=== PATIENT | male | born 1950 | race Caucasian/White ===

== ENCOUNTER 2020-05-15 00:42 | Observation (INO) | payer OTHER ==
[2020-05-15 01:06] LABS: #Eosinphils 0.2 thou/uL (0.0-0.7); #Lymphocytes 1.4 thou/uL (1.20-3.40); #Monocytes 0.6 thou/uL (0.11-0.59); #Neutrophils 4.5 thou/uL (1.40-6.50); %Basophils 0.5 % (0.0-1.0); %Eosinophils 3.1 % (0.0-10.0); %Lymphocytes 20.5 % (21.0-51.0); %Monocytes 8.9 % (0.0-10.0); Hemoglobin 9.4 g/dL (14.0-18.0); Mean Corpuscular HGB CONC 32.6 g/dL (32.0-36.0); Mean Corpuscular Hemoglobin 27.1 pg (27.0-31.0); Mean Corpuscular Volume 83.3 fL (78.0-98.0); Mean Platelet Volume 8.1 fL (7.4-10.4); Platelet Count 246 thou/uL (130-400); Red Blood Cell (RBC) Count 3.47 mill/uL (4.70-6.10); White Blood Cell (WBC) Count 6.7 thou/uL (4.8-10.8)
[2020-05-15 01:29] LABS: ALT (SGPT) 19 U/L (8-55); AST (SGOT) 20 U/L (5-34); Albumin 4.1 g/dL (3.4-4.8); Alkaline Phosphatase 76 U/L (40-110); Anion Gap 13 mmol/L (10-20); BUN (Urea Nitrogen) 19 mg/dL (8.4-25.7); Bilirubin, Total 0.4 mg/dL (0.2-1.2); Calc. Creatinine Clearance 0 mL/min (70-130); Calcium 8.8 mg/dL (7.8-10.44); Carbon Dioxide 21 mmol/L (23-31); Chloride 108 mmol/L (98-107); Estimated GFR-MDRD 78; Globulin 2.5 g/dL (2.4-3.5); Glucose 82 mg/dL (80-115); Lipase 9 U/L (8-78); Potassium 3.6 mmol/L (3.5-5.1); Protein, Total 6.6 g/dL (5.8-8.1); Sodium 138 mmol/L (136-145)
[2020-05-15] MEDS ORDERED: Fentanyl 100 MCG/2 ML VIAL ONE (03:22)
--- NOTE | 2020-05-15 04:12 | PDOC.EVN ---
Event Note - Event Note Event Note: [id number] HP
[2020-05-15] MEDS ORDERED: Dextrose 5% in Water 1,000 ML IV PRN (04:18)
[2020-05-15] MEDS ORDERED: Dextrose 50% Abboject 50 ML SYRINGE SLOW IVP PRN (04:18)
[2020-05-15] MEDS ORDERED: HumaLOG 300 UNITS/3 ML VIAL SC PRN (04:18)
[2020-05-15 05:15] LABS: Troponin I 0.029 ng/mL (< 0.028)
--- NOTE | 2020-05-15 05:18 | HP ---
CHIEF COMPLAINT: Chest pain. HISTORY OF PRESENT ILLNESS: Mr. Saunders is a 70-year-old male with significant cardiac history including congestive heart failure, coronary artery disease, cardiac pacemaker, atrial fibrillation, among others, presented to the emergency room with substernal chest pain and left upper back pain. The patient reports earlier this evening he started having back pain, which caused him to fall and then he reported his back starts spasming. The patient reported later evening that he started having substernal chest pain and shortness of breath. The patient has a history of chronic back pain, which he uses lidocaine patch for it. The patient has a history of coronary artery disease with a previous HI, cardiac stents, pacemaker. The patient stated that his chest pain has improved at this time. He denies syncope, dizziness, nausea, vomiting, abdominal pain, fever, or chills. Workup in the emergency room including initial troponin is negative. EKG showed atrial fibrillation. CT of the chest was done, which ruled out dissection. The patient also was found to be anemic with hemoglobin of 9.4, unknown baseline. The patient was supposed to be transferred to the [facility], but the request was denied. The patient is being admitted to our medical facility for further management. PAST MEDICAL HISTORY: Congestive heart failure, hyperlipidemia, diabetes mellitus, type 2, coronary artery disease, insufficiency, colon cancer, atrial fibrillation, myoclonic body jerks, chronic back pain, among others. PAST SURGICAL HISTORY: 1. Colon removal. 2. Thyroidectomy. 3. Cardiac stent. 4. Defibrillator/pacemaker. FAMILY HISTORY: Reviewed and noncontributory. SOCIAL HISTORY: No reported history of smoking, alcohol abuse, or drug abuse. The patient is a very poor historian. REVIEW OF SYSTEMS: Review of 14 systems negative except as mentioned in the history of present illness. PHYSICAL EXAMINATION: GENERAL: The patient is awake, alert, in mild distress. VITAL SIGNS: Blood pressure is 130/74, pulse is 82, respiratory rate is 18, oxygen saturation 98%, temperature is 98.2. HEAD AND NECK: Normocephalic, atraumatic. Neck is supple. CHEST: Fair bilateral air entry. HEART: Irregularly irregular. ABDOMEN: Soft, nontender. Bowel sounds present. NEUROLOGIC: Awake, alert, moving extremities. PSYCHIATRIC: Unable to assess. EXTREMITIES: No clubbing or cyanosis. LABORATORY DATA: As mentioned above in history of present illness. IMAGING STUDIES: As mentioned above in history of present illness. ASSESSMENT: 1. Acute chest pain, rule out acute coronary syndrome. 2. Coronary artery disease with history of cardiac stents. 3. Congestive heart failure, type undetermined. 4. Atrial fibrillation. 5. Automatic implantable cardioverter defibrillator. 6. Back pain, [id number]. 7. Diabetes mellitus, type 2. 8. Anticoagulated on Eliquis. PLAN: 1. Admit. 2. Telemonitor. 3. Serial troponins. 4. Aspirin. 5. Consult Cardiology in a.m. for evaluation and further recommendations. 6. Reconcile home medications. 7. DVT prophylaxis as appropriate. 8. Expected length of stay is 2 midnights, if patient is stable and further workup negative. Job ID: [id number]
[2020-05-15] MEDS: Acetaminophen 325 MG TAB PO PRN ×3 (05:49→20:12)
[2020-05-15] MEDS: Nitroglycerin 2% Ointment 1 INCH/1 GM Packet TOP SCH ×3 (05:49→22:05)
[2020-05-15] MEDS ORDERED: hydrOXYzine 25 MG TAB PO PRN (07:00)
[2020-05-15 07:37] LABS: Troponin I 0.028 ng/mL (< 0.028)
[2020-05-15] MEDS ORDERED: NALOXONE HCL SL SCH (09:00)
[2020-05-15] MEDS ORDERED: BUPRENORPHINE HCL SL SCH (09:00)
[2020-05-15] MEDS ORDERED: Metoprolol Tartrate 100 MG TAB PO SCH (09:00)
[2020-05-15] MEDS ORDERED: Aspirin 325 mg Enteric Coated Tablet PO SCH (09:00)
--- NOTE | 2020-05-15 09:22 | RAD ---
CHEST 1 VIEW: HISTORY: Chest pain. COMPARISON: None. FINDINGS: Heart size is mildly enlarged. The AICD/pacer lead tips project over the right atrium and right vent ricle. IMPRESSION: Mild cardiomegaly. No acute intrathoracic abnormality. POS: HOME
[2020-05-15] MEDS: Digoxin 0.125 MG TAB PO SCH ×2 (10:21→15:28)
[2020-05-15] MEDS: Tamsulosin HCl 0.4 MG CAP PO SCH (10:21)
[2020-05-15] MEDS: Mycophenolate 250 MG CAP PO SCH ×2 (10:22→20:12)
[2020-05-15] MEDS: DULoxetine 60 MG CAP PO SCH (10:22)
[2020-05-15] MEDS: levETIRAcetam 500 MG TAB PO SCH ×2 (10:23→20:13)
--- NOTE | 2020-05-15 10:23 | CT ---
PRELIMINARY REPORT/[facility]/EMERGENCY AFTER HOURS PROCEDURE: EXAM: CTA Chest with Intravenous Contrast CTA Abdomen with Intravenous Contrast. CLINICAL HISTORY: 70-year-old male patient presents to the ER with complaint of substernal chest pain , left upper back pain. The patient reports earlier this evening he started having back pain which th en caused him to fall, then reports his back started spasming. And patient reported later on this rell aftab he started having substernal chest pain and shortness of breath. The patient does report a histo ry of chronic back pain which he uses lidocaine patches for. The patient also has a history of lemos ry artery disease with a previous ND, 1 stent, pacemaker CONTRAST: With; ISOVUE 370, 90ML COMPARISON: None provided. FINDINGS: VASCULATURE: Aorta: No acute finding. No abdominal aortic aneurysm. No dissection. Pulmonary arteries: The pulmonary arteries are adequately opacified. No pulmonary embolism. Great vessels of aortic arch: No acute finding. No dissection. No arterial occlusion or significant s tenosis. Celiac trunk: No acute finding. No occlusion or significant stenosis. Superior mesenteric artery: No acute finding. No occlusion or significant stenosis. Inferior mesenteric artery: No acute finding. No occlusion or significant stenosis. Renal arteries: No acute finding. No occlusion or significant stenosis. Status post left nephrectomy. CHEST: Lungs: Dependent atelectasis. No mass. No consolidation. Pleural spaces: No pleural effusion. No pneumothorax. Heart and mediastinum: Moderate cardiomegaly. No significant pericardial effusion. Coronary artery ca lcifications are seen. Calcified mediastinal lymph nodes. ABDOMEN: Liver: Unremarkable. No mass. Gallbladder and bile ducts: No calcified stone. No ductal dilation. Pancreas: Unremarkable. No ductal dilation. Spleen: Unremarkable. Adrenals: No mass. Kidneys and ureters: Status post left nephrectomy. No hydronephrosis. No solid mass. 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 Stomach and bowel: No obstruction. No bowel wall thickening. No CT evidence of acute diverticulitis. Lymph nodes: No lymphadenopathy. Bones and soft tissues: No acute osseous abnormality. The soft tissues are unremarkable. IMPRESSION: No acute finding. No occlusion or hemodynamically significant stenosis of the arterial sy stem of the chest, abdomen or pelvis. No aortic dissection. No aortic aneurysm. ELECTRONICALLY SIGNED BY: Delta Gu MD May 15, 2020 2:24:24 AM CDT FINAL REPORT CTA CHEST WITH IV CONTRAST AND 3D POSTPROCESSING CTA ABDOMEN WITH IV CONTRAST AND 3D POSTPROCESSING: I agree with the preliminary report given by Dr. Delta Gandhi of [facility]. POS: OFF
[2020-05-15] MEDS: Famotidine 20 MG TAB PO SCH ×2 (10:24→20:12)
[2020-05-15] MEDS: Spironolactone 25 MG TAB PO SCH (10:24)
[2020-05-15] MEDS: Minocycline HCl 50 MG CAP PO SCH (10:25)
[2020-05-15] MEDS: Hydrocortisone 10 mg Tablet PO SCH ×2 (10:25→18:46)
[2020-05-15] MEDS: Furosemide 20 MG TAB PO SCH (10:26)
[2020-05-15] MEDS: Apixaban 5 MG TAB PO SCH ×2 (10:26→20:16)
[2020-05-15] MEDS: Calcium Carbonate 600 MG + Vit D TAB PO SCH ×2 (10:26→20:16)
[2020-05-15] MEDS: Finasteride 5 MG TAB PO SCH (10:26)
[2020-05-15] MEDS: Amiodarone 200 MG TAB PO SCH ×2 (10:27→15:28)
--- NOTE | 2020-05-15 10:27 | CT ---
PRELIMINARY REPORT/[facility]/EMERGENCY AFTER HOURS PROCEDURE: EXAM: CT cervical spine without contrast CLINICAL HISTORY: FALL; 70-year-old male patient presents to the ER with complaint of substernal ches t pain, left upper back pain. The patient reports earlier this evening he started having back pain wh ich then caused him to fall, then reports his back started spasming. COMPARISONS: CT - CT BRAIN WO CON - 05/15/2020 01:39 AM CDT TECHNIQUE: CT imaging of the cervical spine without contrast, with multiplanar reconstructions. FINDINGS: BONES: Minimal anterolisthesis at C2-C3, likely degenerative. Alignment is otherwise normal. Vertebra l body heights are preserved. No acute fracture. Multilevel facet hypertrophy with partial osseous fusion of the left C4-C5 articular facet joints. SOFT TISSUES: Prevertebral and paraspinal soft tissues are unremarkable. Calcification of the distal common carotid arteries, carotid bulbs, proximal cervical internal carotid arteries. Imaged soft tiss ues have an otherwise normal noncontrast appearance. UPPER CHEST: Imaged lung apices are clear. No apical pneumothorax. See CTA chest from same day for fu ll thoracic evaluation. HEAD: See CT head from same day for full intracranial evaluation. IMPRESSION: No acute osseous abnormality of the cervical spine. ELECTRONICALLY SIGNED BY: Dilip Roque MD May 15, 2020 2:04:35 AM CDT FINAL REPORT CT CERVICAL SPINE WITHOUT CONTRAST: I agree with the preliminary report given by Dr. Dilip Roque of [facility]. POS: OFF
--- NOTE | 2020-05-15 10:29 | CT ---
PRELIMINARY REPORT/[facility]/EMERGENCY AFTER HOURS PROCEDURE EXAM: CT head without contrast CLINICAL HISTORY: FALL; 70-year-old male patient presents to the ER with complaint of substernal ches t pain, left upper back pain. The patient reports earlier this evening he started having back pain wh ich then caused him to fall, then reports his back started spasming. COMPARISONS: CT - CT CERVICAL SPINE WO CON - 05/15/2020 01:39 AM CDT TECHNIQUE: CT imaging of the head without contrast, with multiplanar reconstructions. FINDINGS: BRAIN: No acute intracranial hemorrhage. Marin-white matter differentiation is maintained. No mass-eff ect or midline shift. Course 7 mm calcification of the left lentiform nucleus without surrounding taiwo ma. Calcification of the intracranial internal carotid arteries. VENTRICLES/CSF SPACES: Ventricular size and morphology normal. Extra-axial CSF spaces are normal. ORBITS: Imaged orbits are normal. PARANASAL SINUSES: Near complete opacification of the maxillary sinuses. MASTOID/MIDDLE EARS: Mild right greater than left mastoid tip opacification. BONES: Osseous structures of the calvarium and skull base are normal. SCALP SOFT TISSUES: Normal. IMPRESSION: 1. No hemorrhage or other acute intracranial abnormality. 2. Nonspecific 7 mm calcification of the left lentiform nucleus. Asymmetric coarse calcification woul d be atypical for senescent calcification. Other diagnostic considerations could include dystrophic c alcification from remote insult, calcified small vascular lesion, or small calcified neoplastic lesio n. Recommend further evaluation with nonemergent MRI of the brain. 3. Bilateral maxillary sinus disease. 4. Mild right greater than left mastoid disease. ELECTRONICALLY SIGNED BY: Dilip Roque MD May 15, 2020 2:09:25 AM CDT FINAL REPORT I agree with the preliminary report given by Dr. Dilip Roque of [facility]. POS: OFF
[2020-05-15 11:47] LABS: SARS-CoV-2 MS2 Positive; SARS-CoV-2 N Gene Negative; SARS-CoV-2 S Gene Negative; SARS-CoV-2 by NAA Not Detected (NotDetected); SARS-CoV-2 orf1ab Negative
[2020-05-15] MEDS ORDERED: Iopamidol-370 76% 500 ML 1 ML ONE (11:54)
[2020-05-15] MEDS ORDERED: Acetaminophen/Codeine 30-300mg Tablet PO SCH (12:15)
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
--- NOTE | 2020-05-15 15:07 | NM ---
EXAM: CARDIAC SPECT HISTORY: Chest pain, coronary artery disease, CHF, atrial fibrillation, diabetes, dyslipidemia TECHNIQUE: A myocardial perfusion scan was performed using the single isotope 1 day protocol with phuong hnetium 99m sestamibi. [10 mCi] was injected intravenously for the rest exam followed by 30 mCi for the stress study. Pharmacologic stress with adenosine was monitored and interpreted by Ashley Weldon nurse practitioner FINDINGS: No reversible defects are seen. There is a small fixed defect in the apex. Gated SPECT LVEF: 57% Wall motion exam: Normal IMPRESSION: No evidence of reversible ischemia
[2020-05-15] MEDS ORDERED: Atorvastatin Calcium 40 MG TAB PO SCH (21:00)
[2020-05-15] MEDS ORDERED: Melatonin 3 MG TAB PO SCH (21:00)
[2020-05-16] MEDS ORDERED: Acetaminophen/Codeine 30-300mg Tablet PO SCH (00:30)
[2020-05-16] MEDS: Nitroglycerin 2% Ointment 1 INCH/1 GM Packet TOP SCH (04:55)
[2020-05-16] MEDS ORDERED: Levothyroxine 150 MCG TAB PO SCH (06:00)
[2020-05-16 06:19] VITALS: BMI 34.4
--- NOTE | 2020-05-16 08:00 | CON ---
DATE OF CONSULTATION: 05/15/2020 ADDENDUM: INDICATION FOR CONSULTATION: A 70-year-old patient, with history of known coronary artery disease, history of myocardial infarction in the past, history of intermittent atrial fibrillation, AICD implant, who is visiting from out of town and had sudden onset of chest pain which lasted only for a short period of time. He had fallen earlier. He did complain of pain all over. His was concerned that he had complained of chest pain and then he presented to the emergency room, was admitted for further evaluation. His cardiac enzymes have remained negative. His CK was 333, but cardiac enzymes are negative. His hemoglobin is somewhat decreased at 9.4, uncertain as to why the etiology that he is anemic. He did undergo stress testing today which showed no ischemia. Ejection fraction was estimated at about 57%. Normally, he is followed by the [facility]. At this time, he remains relatively stable from a cardiac standpoint. Please refer to the remainder of this dictation by my nurse practitioner, Yissel Weldon, for the past medical history, social history, family history, review of systems, medications, allergies, physical examination, and assessment and plan. We have discussed this patient in detail and I would agree with her assessment and plan. The stress test is negative and there is no indication he needs any further cardiac workup at this time. It was suggested, however, that he does undergo a sleep study and I believe this will be performed as an outpatient at his facility of choice. Also, he does have an AICD and this was to be interrogated. We are uncertain as to what type of device it was, and once we determine what kind of device it is, we will then try to obtain some kind of information from the device. Job ID: [id number]
[2020-05-16] MEDS: Calcium Carbonate 600 MG + Vit D TAB PO SCH (08:08)
[2020-05-16] MEDS: DULoxetine 60 MG CAP PO SCH (08:08)
[2020-05-16] MEDS: Hydrocortisone 10 mg Tablet PO SCH (08:08)
[2020-05-16] MEDS: Digoxin 0.125 MG TAB PO SCH (08:08)
[2020-05-16] MEDS: Tamsulosin HCl 0.4 MG CAP PO SCH (08:08)
[2020-05-16] MEDS: Amiodarone 200 MG TAB PO SCH (08:09)
[2020-05-16] MEDS: Spironolactone 25 MG TAB PO SCH (08:09)
[2020-05-16] MEDS: Minocycline HCl 50 MG CAP PO SCH (08:09)
[2020-05-16] MEDS: Apixaban 5 MG TAB PO SCH (08:09)
[2020-05-16] MEDS: Famotidine 20 MG TAB PO SCH (08:09)
[2020-05-16] MEDS: Mycophenolate 250 MG CAP PO SCH (08:09)
[2020-05-16] MEDS: Furosemide 20 MG TAB PO SCH (08:10)
[2020-05-16] MEDS: levETIRAcetam 500 MG TAB PO SCH (08:10)
[2020-05-16] MEDS: Finasteride 5 MG TAB PO SCH (08:10)
[2020-05-16] MEDS ORDERED: Aspirin 81 mg Enteric Coated Tablet PO SCH (09:00)
[2020-05-16 11:12] VITALS: BP 98/67; TEMP 98
--- NOTE | 2020-05-17 01:48 | DIS ---
DATE OF ADMISSION: 05/15/2020 DATE OF DISCHARGE: 05/16/2020 PRIMARY CARE PROVIDER: Out of town physician, in the [facility]. DISCHARGE DIAGNOSES: 1. Chest pain. 2. Chest pain most likely secondary to musculoskeletal etiology. 3. COVID-19 test negative. CONSULTATIONS DURING THIS HOSPITALIZATION: Cardiology, Dr. Yu. CONDITION OF PATIENT ON THE DAY OF DISCHARGE: Stable. I assessed Mr. Saunders on the day of discharge. He denies any chest pain or shortness of breath. Vital signs are stable. S1 and S2 are heard, regular. Lungs are clear to auscultation bilaterally. HOSPITAL COURSE: Mr. Saunders is a pleasant 70-year-old gentleman who was admitted to [facility] on May 15, 2020, for chest pain as well as a fall. He was seen by Cardiology Service. He had a nuclear stress test, which did not show any evidence of reversible ischemia. Gated left ventricular ejection fraction was 57%. He continued to improve clinically. Chest pain resolved. He has been cleared for discharge by Cardiology Service. No change was made to his pre-admission home medications. POST ACUTE CARE FOLLOWUP: With primary care provider in 1 week and with his ironworker machine operator in [place] area within 1-2 weeks. ACTIVITY: As tolerated. DIET: Heart healthy and diabetic. DISCHARGE DESTINATION: Home. Job ID: [id number]
--- NOTE | 2020-05-19 09:17 | STRESS ---
Acquisition Time: 2020-05-15 12:15:04 Total Exercise Time: 00:04:00 Test Indications: CHEST PAIN Medications: Protocol: ADENOSINE Max HR: 107 BPM 70% of Pred: 151 BPM Max BP: 146/080 mmHG Max Work Load: 1.0 METS RESTING ECG: PACED/AFIB AT 98 BPM WITH NON-SPECIFIC T WAVE AND ST SEGMENT CHANGES SYMPTOMS: CHEST PAIN 8/10, DYSPNEA NORMAL BP RESPONSE ECTOPY: FREQUENT PVCS, RARE PACS ECG STRESS: NO SIGNIFICANT CHANGES INTERPRETATION: INDETERMINATE ECG / AWAIT NUCLEAR IMAGES FOR DEFINITIVE DIAGNOSIS Confirmed by RAJAT BRADSHAW ([id number]) on 05/19/2020 9:17:09 AM Referred By: KATHIE BRADSHAW Confirmed By:RAJAT BRADSHAW
== END 2020-05-16 13:40 | disposition home or self-care (01) ==
LOC: ERS 00:42 → 2SW 03:50
PROVIDERS: ADMIT Internal Medicine; ATTEND Internal Medicine
DX: R07.9 Chest pain, unspecified (principal); I50.9 Heart failure, unspecified; I25.10 Atherosclerotic heart disease of native coronary artery without angina pectoris; I48.20 Chronic atrial fibrillation, unspecified; E11.9 Type 2 diabetes mellitus without complications; G89.29 Other chronic pain; M54.9 Dorsalgia, unspecified; R29.6 Repeated falls; Z20.828 Contact with and (suspected) exposure to other viral communicable diseases; Z79.01 Long term (current) use of anticoagulants; Z79.82 Long term (current) use of aspirin; Z79.84 Long term (current) use of oral hypoglycemic drugs; Z79.899 Other long term (current) drug therapy; Z85.038 Personal history of other malignant neoplasm of large intestine; Z88.0 Allergy status to penicillin; Z88.5 Allergy status to narcotic agent; Z88.4 Allergy status to anesthetic agent; Z95.5 Presence of coronary angioplasty implant and graft; Z95.810 Presence of automatic (implantable) cardiac defibrillator; W19.XXXA Unspecified fall, initial encounter
CPT/HCPCS: 36415; 36416; 70450; 71045; 71275; 72125; 72191; 74175; 78452; 80053; 82550; 83690; 84484; 85025; 87635; 93005; 93017; 93306; 94760; 96374; A9500; G0378; J0153; J3010; J7517; Q9967; U0003